=== PATIENT | male | born 1965 | race Two or more races ===

== ENCOUNTER 2017-11-08 07:48 | Day surgery (SDC) | payer OTHER ==
[2017-11-03 10:28] VITALS: BMI 27.1
[~2017-11-08 07:48] MED LIST: DEXAMETHASONE SOD PHOSPHATE 10 MG/ML 1 ML VIAL IV ONE; HEPARIN SODIUM,PORCINE 5,000 UNIT/ML 1 ML VIAL SQ ONE; HYDROmorphone 0.5 MG/0.5 ML SYRINGE IVP PRN; LACTATED RINGERS 1,000 ML IV SCH; LIDOCAINE 1% 20 ML VIAL (10MG/ML) FOR IV START INTRADERMA PRN; ONDANSETRON 4 MG/2 ML VIAL IVP ONE; SCOPOLAMINE 1.5MG/72HR PATCH TRANSDERM ONE; ceFAZolin IN SWFI 2 GM/20 ML SYRINGE IVP ONE
--- NOTE | 2017-11-08 08:59 | P.GSHP ---
History of Present Illness H&P Date: 11/08/17 Chief Complaint: Umbilical hernia This a 52-year-old male referred from Dr. Griffith. Patient presents today for laparoscopic robotic repair of incarcerated umbilical hernia. Past Medical History Past Medical History: Asthma Additional Past Medical History / Comment(s): umbilical hernia,steroid injection Oct 2017 History of Any Multi-Drug Resistant Organisms: None Reported Past Surgical History: Orthopedic Surgery Additional Past Surgical History / Comment(s): rt rot cuff repair Past Anesthesia/Blood Transfusion Reactions: No Reported Reaction Additional Past Anesthesia/Blood Transfusion Reaction / Comment(s): no hx blood transfusion Smoking Status: Never smoker - Past Family History Mother Family Medical History: No Reported History Medications and Allergies Home Medications Medication Instructions Recorded Confirmed Type Albuterol Inhaler [Ventolin Hfa 1 - 2 puff INHALATION Q4-6H PRN #1 01/10/1610/20 Rx Inhaler] inhaler Triamcinolone Acetonide 1 applic TOPICAL DAILY PRN 11/03/17 11/03/17 History [Triamcinolone Acetonide 0.025%] Allergies Allergy/AdvReac Type Severity Reaction Status Date / Time propylene glycol known as Allergy rash,candelaria Uncoded 11/08/17 08:22 PEG,PG skin,infections. Surgical - Exam Vital Signs Temp Pulse Resp BP Pulse Ox 98.5 F 81 16 132/89 98 11/08/17 08:25 11/08/17 08:25 11/08/17 08:25 11/08/17 08:25 11/08/17 08:25 - General well developed, no distress - Eyes PERRL - ENT normal pinna - Neck no masses - Respiratory normal expansion - Cardiovascular Rhythm: regular - Abdomen Abdomen: soft, non tender Hernia: umbilical (5 cm incarcerated) Assessment and Plan Assessment: Incarcerated umbilical hernia. We'll perform laparoscopic robotic-assisted repair.
[2017-11-08] MEDS ORDERED: GLYCOPYRROLATE 0.2 MG/ML 2 ML VIAL ONE (09:19)
[2017-11-08] MEDS ORDERED: ROCURONIUM BROMIDE 10 MG/ML 10 ML VIAL IV ONE (09:19)
[2017-11-08] MEDS ORDERED: fentaNYL (PF) 50 MCG/ML 2 ML AMP ONE (09:19)
[2017-11-08] MEDS ORDERED: LIDOCAINE 1% INJ 10MG/ML (20 ML MDV) ONE (09:19)
[2017-11-08] MEDS ORDERED: PROPOFOL 10 MG/ML 20 ML VIAL IV ONE (09:19)
[2017-11-08] MEDS ORDERED: MIDAZOLAM 2 MG/2 ML VIAL ONE (09:19)
[2017-11-08] MEDS ORDERED: SUCCINYLCHOLINE CHLORIDE 100 MG/5 ML SYR IV ONE (09:19)
[2017-11-08] MEDS ORDERED: NEOSTIGMINE 1 MG/ML 10 ML VIAL ONE (09:19)
[2017-11-08] MEDS ORDERED: BUPIVACAINE (PF) 0.25% 30 ML VIAL SQ ONE ×2 (09:24→09:37)
[2017-11-08] MEDS ORDERED: LACTATED RINGERS 1,000 ML IV ONE (10:07)
[2017-11-08] MEDS: MEPERIDINE 50 MG/ML SYRINGE IVP ONE ×2 (10:30→10:35)
[2017-11-08 10:42] VITALS: TEMP 97.4
[2017-11-08] MEDS ORDERED: diphenhydrAMINE 50 MG/ML 1 ML VIAL IVP ONE (10:45)
[2017-11-08 12:27] VITALS: RESP 16
[2017-11-08] MEDS ORDERED: HYDROcodone/APAP 7.5-325MG 1 EACH TAB PO ONE ×3 (12:45→14:47)
--- NOTE | 2017-11-08 13:28 | P.OP ---
Date of Procedure: 11/08/17 Preoperative Diagnosis: Incarcerated umbilical hernia Postoperative Diagnosis: Incarcerated umbilical hernia Procedure(s) Performed: Laparoscopic robotic-assisted repair of incarcerated we'll hernia Partial omentectomy Anesthesia: ALMA Surgeon: Black Garrison Estimated Blood Loss (ml): 5 Pathology: other (Omentum) Condition: stable Disposition: PACU Description of Procedure: The patient was placed on the operating table in the supine position. He received general anesthesia. His abdomen was prepped and draped usual fashion. Using a 5 mm optical trocar under direct visualization the peritoneal cavity was entered in the left upper quadrant. The abdomen was then insufflated. The laparoscope was placed back into the perineal cavity. Next a 8 mm robotic trocar was placed in the left lower quadrant and a 12 mm robotic trocar was placed in the left lateral position. The original 5 mm trocar was exchanged for a 8 mm robotic trocar. The patient's placed in the left side up position. And the patient was undocked the robot. The umbilical hernia was visualized. Using hook cautery the peritoneum over the umbilical hernia was excised. The incarcerated omentum was transected and dissected free umbilical hernia site The fascial opening was repaired using 0V LOC suture. Next a piece of 11 cm round ventral light ST mesh was placed into the. Cavity and secured with 2 OV lock suture. The patient was undocked the robot. The needles were retrieved. The transected omentum was retrieved. The fascia of the 12 mm trocar site was closed with 0 Ethibond suture. Skin was closed interrupted 3-0 Monocryl suture. Dermabond dressings was applied. Patient tolerated the procedure well and was sent to recovery room stable condition.
[2017-11-08 14:44] VITALS: BP 114/67; PULSE 92
== END 2017-11-08 15:30 | disposition home or self-care (01) ==
LOC: OR 07:48
PROVIDERS: ATTEND Surgery
DX: K42.0 Umbilical hernia with obstruction, without gangrene (principal); J45.909 Unspecified asthma, uncomplicated; Z88.8 Allergy status to other drugs, medicaments and biological substances
CPT/HCPCS: 88302; 49653; C1781; J2250; J1200; J1644; J1100; J2710; J2175; J2405; J2001; J3010; J0330; J2704; J0690

== ENCOUNTER 2019-06-21 13:27 | Emergency (ER) | payer OTHER ==
[2019-06-21 13:55] VITALS: BP 120/80; PULSE 79; RESP 18; TEMP 98.2
[2019-06-21] MEDS ORDERED: CYCLOBENZAPRINE 10 MG TAB PO STA (14:16)
[2019-06-21] MEDS ORDERED: KETOROLAC 60 MG/2 ML VIAL IM STA (14:16)
--- NOTE | 2019-06-21 14:50 | XR ---
EXAMINATION TYPE: XR lumbar spine 2 or 3V DATE OF EXAM: 06/21/2019 CLINICAL HISTORY: pain TECHNIQUE: Three views of the lumbar spine are submitted. COMPARISON: None. FINDINGS: There are 5 lumbar type vertebral bodies identified. The lumbar spine shows satisfactory alignment w ithout evidence of acute fracture or dislocation. Vertebral body heights are within normal limits. Severe disc space narrowing at L5-S1. The overlying soft tissue appears unremarkable. IMPRESSION: No acute fracture or dislocation is seen in the lumbar spine. ICD 10 NO FRACTURE, INITIAL EVALUATION
[2019-06-21] MEDS ORDERED: ACET/COD 300 MG/30 MG STARTER PACK 6 TAB BTL PO STA (15:24)
[2019-06-21] MEDS ORDERED: Acetaminophen-Codeine 300-30mg TAB PO STA (15:24)
--- NOTE | 2019-06-21 15:29 | ED ---
General Adult HPI - General Chief complaint: Back Pain/Injury Stated complaint: Back injury Time Seen by Provider: 06/21/19 14:03 Source: patient, RN notes reviewed, old records reviewed Mode of arrival: ambulatory Limitations: no limitations - History of Present Illness Initial comments: 53-year-old male patient with no pertinent past medical history of present to the chief complaint of right paralumbar pain. Patient reports that approximately 2 days ago he was standing up off the couch when his pants got caught, resulting in a twisting motion of his low back. Patient was that he felt pain. Patient was that he has pain and muscle tightness in his right paralumbar region. Patient denies any lower extremity weakness. Denies any loss of bowel bladder control. Denies any paresthesias. Patient is ambulatory. Denies all other complaints. Systemic: Pt denies fatigue, fever/chills, rash. Pt denies weakness, night sweats, weight loss. Neuro: Pt denies headache, visual disturbances, syncope or pre-syncope. HEENT: Pt denies ocular discharge or irritation, otalgia, rhinorrhea, pharyngitis or notable lymphadenopathy. Cardiopulmonary: Pt denies chest pain, SOB, heart palpitations, dyspnea on exertion. Abdominal/GI: Pt denies abdominal pain, n/v/d. : Pt denies dysuria, burning w/ urination, frequency/urgency. Denies new onset urinary or bowel incontinence. MSK: Pt denies myalgia, loss of strength or function in extremities. Neuro: Pt denies new onset weakness, paresthesias. - Related Data Home Medications Medication Instructions Recorded Confirmed Triamcinolone Acetonide 1 applic TOPICAL DAILY PRN 11/03/17 11/03/17 [Triamcinolone Acetonide 0.025%] Previous Rx's Medication Instructions Recorded Albuterol Inhaler [Ventolin Hfa 1 - 2 puff INHALATION Q4-6H PRN #1 01/10/16 Inhaler] inhaler Docusate [Colace] 100 mg PO BID #20 capsule 11/08/17 HYDROcodone/APAP 7.5-325MG [Malin 1 each PO Q4H PRN #30 tab 11/08/17 7.5] Cyclobenzaprine [Flexeril] 10 mg PO TID PRN #20 tab 06/21/19 Ibuprofen [Motrin] 600 mg PO Q6HR PRN #40 day 06/21/19 Allergies Allergy/AdvReac Type Severity Reaction Status Date / Time propylene glycol known as Allergy rash,candelaria Uncoded 06/21/19 13:53 PEG,PG skin,infections. Review of Systems ROS Statement: Those systems with pertinent positive or pertinent negative responses have been documented in the HPI. ROS Other: All systems not noted in ROS Statement are negative. Past Medical History Past Medical History: Asthma Additional Past Medical History / Comment(s): umbilical hernia,steroid injection Oct 2017 History of Any Multi-Drug Resistant Organisms: None Reported Past Surgical History: Orthopedic Surgery Additional Past Surgical History / Comment(s): rt rot cuff repair Past Anesthesia/Blood Transfusion Reactions: No Reported Reaction Additional Past Anesthesia/Blood Transfusion Reaction / Comment(s): no hx blood transfusion Past Psychological History: No Psychological Hx Reported Smoking Status: Never smoker Past Alcohol Use History: Occasional Past Drug Use History: None Reported - Past Family History Mother Family Medical History: No Reported History General Exam - General Exam Comments Initial Comments: Constitutional: NAD, AOX3, Pt has pleasant affect. HEENT: NC/AT, trachea midline, neck supple, no lymphadenopathy. Posterior pharynx non erythematous, without exudates. External ears appear normal, without discharge. Mucous membranes moist. Eyes PERRLA, EOM intact. There is no scleral icterus. No pallor noted. Cardiopulmonary: RRR, no murmurs, rubs or gallops, no JVD noted. Lungs CTAB in anterior and posterior bowen. No peripheral edema. Abdominal exam: Abdomen soft and non-distended. Abdomen non-tender to palpation in all 4 quadrants. Bowel sounds active in LLQ. No hepatosplenomegaly. No ecchymosis Neuro: CN II-XII grossly intact. No nuchal rigidity. No raccon eyes, no emmanuel sign, no hemotympanum. No cervical spinal tenderness. MSK: Right straight leg raise positive, but straight leg raise negative. 5 out of 5 strength psoas and quadriceps muscles. Ambulatory. Right paralumbar region mild tender to palpation. No midline tenderness. No posterior calf tenderness bilaterally, homans sign negative bilaterally. Posterior tibialis and radial pulse +2 bilaterally. Sensation intact in upper and lower extremities. Full active ROM in upper and lower extremities, 5/5 stregnth. Limitations: no limitations Course Vital Signs 06/21/19 13:53 Temperature 98.2 F Pulse Rate 79 Respiratory 18 Rate Blood Pressure 120/80 O2 Sat by Pulse 97 Oximetry Medical Decision Making - Medical Decision Making 53-year-old male patient with no pertinent past medical history of present to the chief complaint of right paralumbar pain. Patient reports that approximately 2 days ago he was standing up off the couch when his pants got caught, resulting in a twisting motion of his low back. Patient was that he felt pain. Patient was that he has pain and muscle tightness in his right paralumbar region. Patient denies any lower extremity weakness. Denies any loss of bowel bladder control. Denies any paresthesias. Patient is ambulatory. Denies all other complaints. Pt VSS, afebrile. Physical exam displayed: Right straight leg raise positive, but straight leg raise negative. 5 out of 5 strength psoas and quadriceps muscles. Ambulatory. Right paralumbar region mild tender to palpation. No midline tenderness. Plain films did not display acute process of lumbar spine. Patient improved with Flexeril, Toradol. Patient was discharged with analgesic, muscle relaxers, anti-inflammatories. Patient to follow up with primary care provider, follow up with orthopedic consult symptoms persist. Case discussed with Dr. Trevino. Disposition Clinical Impression: Lumbar strain Disposition: HOME SELF-CARE Condition: Stable Additional Instructions: Patient to adhere to previously discussed treatment plan and will take medication(s) as directed. Patient to follow up with PCP in 1-2 days. Patient to return to ED if symptoms do not improve. Follow-up with primary care provider tomorrow, follow up with orthopedic consult if symptoms persist. Return to ER if condition worsens. Take medication as directed. Prescriptions: Cyclobenzaprine [Flexeril] 10 mg PO TID PRN #20 tab PRN Reason: muscle spasm Ibuprofen [Motrin] 600 mg PO Q6HR PRN #40 day PRN Reason: Pain Is patient prescribed a controlled substance at d/c from ED?: No Referrals: Zia Griffith MD [Primary Care Provider] - 1-2 days Birgit Castellon DO [Doctor of Osteopathic Medicine] - 1-2 days
== END 2019-06-21 15:44 | disposition home or self-care (01) ==
LOC: EC 13:27
DX: S39.012A Strain of muscle, fascia and tendon of lower back, initial encounter (principal); Z53.9 Procedure and treatment not carried out, unspecified reason; Z88.8 Allergy status to other drugs, medicaments and biological substances; Z98.890 Other specified postprocedural states; X50.1XXA Overexertion from prolonged static or awkward postures, initial encounter
CPT/HCPCS: 72100; 96372; 99284; J1885